=== PATIENT | female | born 1980 ===

== ENCOUNTER 2021-01-11 16:08 | Emergency (ER) | payer SELFPAY ==
[2021-01-11 16:42] VITALS: BP 136/85; PULSE 105; RESP 20; TEMP 36.2; O2SAT 97
[2021-01-11 19:55] VITALS: BP 133/80; PULSE 100; RESP 18; O2SAT 100
--- NOTE | 2021-01-11 20:57 | PC.NURSE ---
Pt came up to the triage desk and stated that she didn't want [email or web address] wait any longer and was calling her to come pick her up.
== END 2021-01-11 20:57 | disposition left against medical advice (07) ==
DX: R51.9 Headache, unspecified (principal)
CPT/HCPCS: 99199